=== PATIENT | female | born 1945 | race Caucasian/White ===

== ENCOUNTER 2019-03-23 00:24 | Emergency (ER) | payer MEDICARE, OTHER ==
[2019-03-23 00:49] VITALS: BP 143/57
--- NOTE | 2019-03-23 02:22 | ER Document Report ---
ED General - General Chief Complaint: Snake Bite Stated Complaint: BITE ON RIGHT FOREARM Time Seen by Provider: 03/23/19 02:16 Notes: Patient is a 73-year-old female who presents after being bitten by a snake earlier today. Patient states that she was turning her roses and felt something "hit my mid right arm". States that when she pulled her arm back she noticed the area was bleeding and was slightly swollen. States she did not see the snake but that there were 2 distinct puncture scott in the middle of her arm. She states that there is too thought for sure this was just a rosebush but states that she is been stuck by the thorns many times that was not similar to those previous experiences. She notes that since the initial injury the swelling has gone down. She denies any warmth, significant swelling or discoloration to the area. Notes a mild, dull, throbbing pain to the area. Nothing improves or worsens the discomfort. No history of similar symptoms in the past. Has not seen her primary care doctor regarding today's concerns TRAVEL OUTSIDE OF THE [place] IN LAST 30 DAYS: No - Related Data Allergies/Adverse Reactions: No Known Allergies Allergy (Unverified 03/23/19 00:27) Past Medical History - General Information source: Patient - Social History Smoking Status: Never Smoker Frequency of alcohol use: None Drug Abuse: None Lives with: Spouse/Significant other Family History: Reviewed & Not Pertinent Review of Systems - Review of Systems Notes: Constitutional: Negative for fever. HENT: Negative for sore throat. Eyes: Negative for visual changes. Cardiovascular: Negative for chest pain. Respiratory: Negative for shortness of breath. Gastrointestinal: Negative for abdominal pain, vomiting or diarrhea. Genitourinary: Negative for dysuria. Musculoskeletal: Negative for back pain. Skin: Positive for traumatic ecchymosis, bruising to the right mid arm Neurological: Negative for headaches, weakness or numbness. 10 point ROS negative except as marked above and in HPI. Physical Exam - Vital signs Vitals: Temp Pulse Resp BP Pulse Ox 97.6 F 93 18 143/57 H 96 03/23/19 00:47 03/23/19 00:47 03/23/19 00:47 03/23/19 00:47 03/23/19 00:47 Interpretation: Hypertensive Notes: PHYSICAL EXAMINATION: GENERAL: Well-appearing, well-nourished and in no acute distress. HEAD: Atraumatic, normocephalic. EYES: Pupils equal round and reactive to light, extraocular movements intact, sclera anicteric, conjunctiva are normal. ENT: nares patent, oropharynx clear without exudates. Moist mucous membranes. NECK: Normal range of motion, supple without lymphadenopathy LUNGS: Breath sounds clear to auscultation bilaterally and equal. No wheezes rales or rhonchi. HEART: Regular rate and rhythm without murmurs ABDOMEN: Soft, nontender, normoactive bowel sounds. No guarding, no rebound. No masses appreciated. EXTREMITIES: Normal range of motion, no pitting or edema. No cyanosis. NEUROLOGICAL: No focal neurological deficits. Moves all extremities spontaneously and on command. PSYCH: Normal mood, normal affect. SKIN: Warm, Dry, normal turgor, mild bruising with 2 puncture scott to the mid right forearm Course - Re-evaluation Re-evalutation: 03/23/19 02:25 Patient presents with an exam and history most consistent with either a dry copperhead bite versus a nonvenomous snake bite. There are 2 small puncture scott consistent with fang bites and area of underlying ecchymosis but no starting erythema or edema to suggest envenomation. Normal flexion extension at the elbow, wrist, and no systemic symptoms. No indication for labs or imaging. At this time will discharge with return precautions and follow-up recommendations. Verbal discharge instructions given a the bedside and opportunity for questions given. Medication warnings reviewed. Patient is in agreement with this plan and has verbalized understanding of return precautions and the need for primary care follow-up in the next 24-72 hours. - Vital Signs Vital signs: Temp Pulse Resp BP Pulse Ox 97.6 F 93 18 143/57 H 96 03/23/19 00:47 03/23/19 00:47 03/23/19 00:47 03/23/19 00:47 03/23/19 00:47 Discharge - Discharge Clinical Impression: Snake bite Qualifiers: Encounter type: initial encounter Qualified Code(s): W59.11XA - Bitten by nonvenomous snake, initial encounter Traumatic ecchymosis of right upper arm Qualifiers: Encounter type: initial encounter Qualified Code(s): S40.021A - Contusion of right upper arm, initial encounter Condition: Good Disposition: HOME, SELF-CARE Instructions: Snakebites ([facility]) Additional Instructions: You were bitten by a snake today. This appears to either have been a dry copperhead bite or a nonvenomous snake bite. Continue to apply ice locally to the area. Please follow closely with your primary care physician in the next several days. Return to the emergency department immediately if you have spreading redness, fever greater than 101F, persistent vomiting, weakness, n umbness, difficulty breathing, or any other symptoms that are of concern to you.
== END 2019-03-23 02:30 | disposition home or self-care (01) ==
LOC: ER 00:24
DX: S51.851A Open bite of right forearm, initial encounter (principal); W59.11XA Bitten by nonvenomous snake, initial encounter; Y92.096 Garden or yard of other non-institutional residence as the place of occurrence of the external cause
CPT/HCPCS: 99283